=== PATIENT | female | born 1990 | race African-American/Black ===

== ENCOUNTER → 2024-11-20 08:13 | Outpatient (CLI) | payer OTHER, SELFPAY ==
--- NOTE | 2024-11-20 08:17 | DI.NM.S_ITS ---
PROCEDURE: NM EXERCISE TREADMILL NON NUC COMPARISON: None. INDICATIONS: Chest pain during exercise FINDINGS: Rest ECG sinus rhythm 64 bpm. Luigi protocol 10:35, maximum heart rate 165 bpm (89% peak predicted), peak blood pressure 148/82, 12.8 METS, JOHN -15%. Exercise ECG sinus tachycardia, no ST segment changes or arrhythmias. The patient reported pleuritic chest pain during exercise. IMPRESSION: Low risk study. No evidence of exercise-induced ischemia or arrhythmia. Normal hemodynamic response. Good exercise tolerance. Atypical, pleuritic chest pain. Dictated by: Rubia Reyna D.O. on 11/20/2024 at 16:43 Approved by: Rubia Reyna D.O. on 11/20/2024 at 16:46
== END ==
DX: R07.89 Other chest pain (principal); R07.81 Pleurodynia
CPT/HCPCS: 93017